=== PATIENT | female | born 1990 | race Caucasian/White ===

== ENCOUNTER 2016-04-28 10:53 | Emergency (ER) | payer OTHER ==
--- NOTE | 2016-04-28 15:07 | DIAGNOSTIC IMAGING REPORT ---
PROCEDURE: ABDOMEN/PELVIS WITH CONTRAST CLINICAL INDICATION: ABDOMINAL PAIN TECHNIQUE: 125 ml of Isovue 300 were injected intravenously and axial images were obtained of the abdomen and pelvis with sagittal and coronal reformations. COMPARISON: None. FINDINGS: ABDOMEN: Clear lung bases. Normal sized heart. No hiatal hernia. Tiny hepatic cyst. The liver, gallbladder, adrenal glands, kidneys, pancreas and spleen are otherwise normal. The abdominal aorta is normal in its course and caliber. There are no suspicious calcifications, retroperitoneal adenopathy or masses. The stomach, upper bowel loops, and mesentery are normal. Intact anterior abdominal wall. No free fluid or inflammation. PELVIS: The appendix and pelvic small bowel loops are normal. Small amount of liquid stool in the cecum. The rest of the colon is diffusely decompressed/ spasm. The uterus, ovaries, urinary bladder, and pelvic vessels are normal. No adenopathy, free fluid, or pelvic mass. Intact osseous structures. IMPRESSION: 1. No acute process. 2. Decompressed colon versus colonic spasm. 3. Findings discussed with Dr. Groves in the emergency room. All CT scans at this facility use dose modulation, iterative reconstruction, and/or weight-based dosing when appropriate to reduce radiation dose to as low as reasonably achievable.
--- NOTE | 2016-04-28 16:11 | ED NURSING NOTES ---
Clinical Report - [facility] [address] [place] [address] 04/28/2016 10:56 Patient: MEHDI BEJARANO TRIAGE Triage time 1048. Acuity: LEVEL 3. Chief Complaint: ABDOMINAL PAIN, NAUSEA, VOMITING and DIARRHEA. --10:59 Lillian Valadez R.N. 10:52 04/28/16. BP: 117/71. HR: 74. RR: 18. O2 saturation: 99%. Temp: 97.7 F. Pain level now: 12/27. --10:59 Lillian Valadez R.N. Weight: 61 kg stated. Height/Length: 66 inches Per Patient. BMI: 21.7. --23:06 Lillian Valadez R.N. Medications CeleXA Oral. ClonazePAM Oral. Gabapentin Oral. Prazosin HCl Oral. Vistaril Oral. --23:07 Lillian Valadez R.N. Allergies Cipro. --10:52 Lillian Valadez R.N. History Arrived by private vehicle. Historian: father. Accompanied by family. Onset. (0600). She has had nausea, vomiting, diarrhea and abdominal pain. PAST MEDICAL HX: ( anxiety). SURGERY HX: No history of previous surgery. SOCIAL HX: Light tobacco smoker (cigarette)- less than 1/2 a pack per day. Occasional alcohol use. History of drug use: marijuana. --10:59 Lillian Valadez R.N. ADDITIONAL SURGERIES: no known surgeries. Interventions ID band on patient. To treatment room. --10:59 Lillian Valadez R.N. PHYSICAL ASSESSMENT 10:48. To room via wheelchair. Patient gowned. GENERAL / NEURO / PSYCH: Alert. Oriented X 4. Appears in distress. RESPIRATORY: Respirations not labored. CVS: Capillary refill less than 2 seconds. GI / : The patient has had nausea and diarrhea. Emesis noted. (hem + emesis). Abdominal tenderness. SKIN: Skin is warm and dry. --10:58 Lillian Valadez R.N. NURSING PROGRESS NOTES 10:48. Patient gowned. Head of bed elevated. Reassurance given. Patient identifiers checked. Call light placed in reach. Side rails up. Bed placed in lowest position. Patient ready for evaluation- chart flagged. --10:54 Lillian Valadez R.N. 11:10. ( Pt continues to wretch and have small amounts of brown/maroon tinged emesis. Pt also up approx every 5 min to go to BR for diarrhea.). --11:39 Lillian Valadez R.N. 11:05 04/28/2016 Site #1 started via IV in the right antecubital space with an 20g angiocath, with aseptic technique and good blood return; one attempt. Blood drawn: rainbow set. Labeled in the presence of the patient and sent to the lab. Saline lock flushed with 10 mL saline. --11:40 Lillian Valadez R.N. 11:20. ( zofran given, pt still having emesis, still c/ o stomach pain, ERMD notified). --11:41 Lillian Valadez R.N. 11:05 04/28/2016 Started bag #1 1000 mL IV Fluids IV NS (Saline); at 1000 mL/hr over 1 hour(s) via site #1 via IV pump. IV patency established. IV site checked: no pain, redness, or swelling. IV flushed thoroughly pre- and post-medication administration. --11:41 Lillian Valadez R.N. 11:07 04/28/2016 Zofran (Ondansetron HCl) IVP 4 mg given over 1 minute(s) via site #1. IV patency established. IV site checked: no pain, redness, or swelling. IV flushed thoroughly pre- and post-medication administration. IVP given by RN. --11:42 Lillian Valadez R.N. 11:20 04/28/2016 Reglan (Metoclopramide HCl) IVP 10 mg given over 2 minute(s) via site #1. IV patency established. IV site checked: no pain, redness, or swelling. IV flushed thoroughly pre- and post-medication administration. IVP given by RN. --11:43 Lillian Valadez R.N. 11:30 04/28/2016 Demerol (Meperidine HCl) IVP 50 mg given over 1 minute(s) via site #1. IV patency established. IV site checked: no pain, redness, or swelling. IV flushed thoroughly pre- and post-medication administration. IVP given by RN. --11:43 Lillian Valadez R.N. 11:30. ( Pt crying out, "my stomach hurts....help me" additional meds given. Pt had been up to bathroom again for diarrhea prior to this, BSC placed in room, to obtain stool sample.). --11:45 Lillian Valadez R.N. 11:40 Pt quiet, with eyes closed, states pain now 6/10. mother at bedside. --11:47 Lillian Valadez R.N. 11:51 04/28/16. BP: 101/61 (regular adult cuff) taken on the left arm, via an automated monitor, while sitting. ED physician and RN notified. HR: 73 (regular, normal rate and strong). RN notified. RR: 18 (regular, unlabored and normal). O2 saturation: 96% on room air. RN notified. Temp: 98.1 F (oral). RN notified. --11:52 Luis Villalobos 12:30 04/28/16. BP: 104/64. HR: 70. RR: 16. O2 saturation: 100%. Temp: deferred. Pain level now: 2/10. Additional comments: resting quietly, mother at bedside. Pt up to BSC to give UA. --12:45 Lillian Valadez R.N. 12:30. Patient ID band checked for patient name and birthdate: patient confirmed. Clean catch urine collected with return of orange-colored urine; sample sent to lab for urinalysis, culture and HCG. Specimen labeled in the presence of the patient. --12:45 Lillian Valadez R.N. 2630. Patient transported to [place] by stretcher with tech. --14:07 Lillian Valadez R.N. 13:30 04/28/16. BP: 98/61. HR: 82. RR: 16. O2 saturation: 98%. Temp: 98.2 F. Pain level now: 04/29. Additional comments: does c/o headache . --14:07 Lillian Valadez R.N. 12:20 04/28/2016 IV Fluids IV NS Discontinued: bag #1 infused. Total amount infused: 1000 mL. IV patency established. IV site checked: no pain, redness, or swelling. IV flushed thoroughly. --14:10 Lillian Valadez R.N. 12:25 04/28/2016 1000cc NS( bag #2) IV at site #1 * IV Fluids 1000cc/hr --14:12 Lillian Valadez R.N. 13:25 04/28/2016 1000cc NS( bag #2) IV at site #1 IV Fluids Discontinued: bag #2 infused. Total amount infused: 1000 mL. IV patency established. IV site checked: no pain, redness, or swelling. IV flushed thoroughly. (site converted to saline lock). --14:13 Lillian Valadez R.N. 14:15 04/28/16. Patient returned from radiology by stretcher with tech. --14:15 Lillian Valadez R.N. 14:22. ( Pt vomited 250cc clear liquid with brownish flecks. NIP meds given, ERMD notified). --14:26 Lillian Valadez R.N. 14:22 04/28/2016 Zofran (Ondansetron HCl) IVP 4 mg given over 1 minute(s) via site #1. IV patency established. IV site checked: no pain, redness, or swelling. IV flushed thoroughly pre- and post-medication administration. IVP given by RN. --14:27 Lillian Valadez R.N. 14:35 04/28/16. ( Pt states nausea better, but ambulating to bathroom to have diarrhea). --14:35 Lillian Valadez R.N. 14:50. ( now states vomiting worse, vomited additional 200 cc clear fluid, ERMD notified, additional meds given, mouth care done w swabs). --15:09 Lillian Valadez R.N. 15:00 04/28/2016 PROMETHAZINE IVP 25 mg given over 1 minute(s) via site #1. IV patency established. IV site checked: no pain, redness, or swelling. IV flushed thoroughly pre- and post-medication administration. IVP given by RN. --15:10 Lillian Valadez R.N. 15:30 pt doing well, no additional vomiting. ERMD notoifed. --16:38 Lillian Valadez R.N. 16:20 04/28/2016 1000cc NS IV bag #3 * IV Fluids 250/hr --23:03 Lillian Valadez R.N. 16:25 04/28/2016 Started 20 mg of Famotidine IVPB in bag #1 50 mL; at 150 mL/hr over 20 minute(s) via site #1 via IV pump. IV patency established. IV site checked: no pain, redness, or swelling. IV flushed thoroughly pre- and post-medication administration. --16:40 Lillian Valadez R.N. 1635 pt continues to vomit, 250cc out-- additional meds given. --16:41 Lillian Valadez R.N. 16:49 04/28/16. BP: 117/78. HR: 83. RR: 18. O2 saturation: 100%. Temp: 98.2 F. Pain level now 5/10. --16:50 Lillian Valadez R.N. 16:45 04/28/2016 Ativan (LORazepam) IVP 0.5 mg given over 1 minute(s) via site #1. IV patency established. IV site checked: no pain, redness, or swelling. IV flushed thoroughly pre- and post-medication administration. IVP given by RN. --16:51 Lillian Valadez R.N. 17:35 04/28/16. BP: 103/61 (regular adult cuff) taken on the left arm, via an automated monitor, while lying. ED physician and RN notified. HR: 86 (regular, normal rate and strong). RR: 20 (regular, unlabored and normal). O2 saturation: 96% on room air. ED physician and RN notified. Temp: 98.1 F (oral). --17:37 Luis Villalobos 17:53 04/28/2016 Famotidine IVPB Discontinued: bag #1 infused. Total amount infused: 50 mL. --17:53 Le Rea R.N. Patient waiting for evaluation, CT results and disposition. --18:03 Le Rea R.N. 18:30 04/28/16. BP: 115/71. HR: 81. RR: 18. O2 saturation: 99%. Temp: 98.4 F. Pain level now: 04/29. Additional comments: pt sleeping, hasn't vomted since ativan given. sleeping at present . --18:46 Lillian Valadez R.N. <<STRICKEN ENTRY-- ( RT here assessing pt.). --19:02 Le Rea R.N. --END STRIKE>> Charted On Wrong Patient --19:03 Le Rea R.N. 18:50 04/28/2016 Site #1 removed upon discharge. Bandaid applied. --23:05 Lillian Valadez R.N. 18:50 04/28/2016 1000cc NS IV bag #3 IV Fluids Discontinued: bag #3 STOPPED upon discharge. Total amount infused: 650 mL. IV patency established. IV site checked: no pain, redness, or swelling. IV flushed thoroughly. --23:04 Lillian Valadez R.N. DISPOSITION / DISCHARGE 19:00. Condition at departure: improved and stable. No learning barriers present. Discharge instructions provided and reviewed with the patient and parent. Reviewed medication(s) (zofran, protonix, dicyclomine). Patient and parent verbalized understanding. Written instructions provided in [place]. The patient was discharged home and accompanied by parent. She left the Emergency Department in a wheelchair and via private vehicle. Parent driving. --22:59 Lillian Valadez R.N. 19:00 04/28/16. BP: 115/71. HR: 84. RR: 16. O2 saturation: 98%. Temp: 98.4 F. Pain level now: 04/29. --22:59 Lillian Valadez R.N. Locked/Released at 04/28/2016 23:08 by Lillian Valadez R.N.
--- NOTE | 2016-04-28 16:11 | ED ORDER SUMMARY ---
..... Patient: MEHDI BEJARANO OrderSheet [facility] VisitID: [id number] [place] [address] 25y, F Registration Date/Time: 04/28/2016 ORDER SHEET Weight: 61 kg (stated) Allergies: Cipro GENERAL ORDERS: CBC w Diff Urgent (11:04/28/2016 Varsha Vital) (Ack 11:32 TBergley) (11:33 TBergley) CMP Urgent (:04/28/2016 Varsha Vital) (Ack 11:32 TBergley) (11:33 TBergley) UA-Culture if indicated Urgent (:04/28/2016 Varsha Vital) (Ack 11:32 TBergley) (12:46 DDean R.N.) PT with INR Urgent (11:04/28/2016 Varsha Vital) (Ack 11:32 TBergley) (11:33 TBergley) PTT Urgent (11:04/28/2016 Varsha Vital) (Ack 11:32 TBergley) (11:33 TBergley) Amylase Urgent (11:04/28/2016 Varsha Vital) (Ack 11:32 TBergley) (11:33 TBergley) Lipase Urgent (11:04/28/2016 Varsha Vital) (Ack 11:32 TBergley) (11:33 TBergley) Urine Urgent (11:04/28/2016 Varsha Vital) (Ack 11:32 TBergley) (12:46 DDean R.N.) CT Abd/Pel w Cont (No) (15/0.8) Urgent (13:43 04/28/2016 Varsha Vital) (Ack 14:02 LTapper) (14:15 DDean R.N.) MEDICATION ORDERS: - (may have IV bag #2 at 1000cc hr. then convert to saline lock) (14:08 04/28/2016 DDean R.N. verbal order read back to Varsha Vital) (14:12 DDean R.N.) Promethazine IV 25 mg (HIGH ALERT MEDICATION, NOW) (15:01 04/28/2016 Varsha Viatl) (15:10 DDean R.N.) - (may have IV bag #3 at 250/hr) (23:01 04/28/2016 DDean R.N. verbal order read back to Varsha Vital) (23:03 DDean R.N.) IV FLUIDS: IV NS : initial bolus none -, then 1000 mL/hr for X1 (NOW) (11:28 04/28/2016 Varsha Vital) (Ack 11:30 DDean R.N.) (11:41 DDean R.N.) Reglan IV 10 mg (NOW) (11:29 04/28/2016 Varsha Vital) (Ack 11:31 DDean R.N.) (11:43 DDean R.N.) Zofran IV 4 mg (NOW) (11:29 04/28/2016 Varsha Vital) (Ack 11:31 DDean R.N.) (11:42 DDean R.N.) Demerol IV 50 mg (HIGH ALERT MEDICATION, NOW) (11:30 04/28/2016 Varsha Vital) (Ack 11:31 DDean R.N.) (11:43 DDean R.N.) Zofran IV 4 mg (NOW) (14:27 04/28/2016 DDean R.N. per protocol) (14:27 DDean R.N.) Famotidine IV 20 mg/50mL (NOW) (16:25 04/28/2016 Varsha Vital) (16:40 DDean R.N.) Ativan IV 0.5 mg (HIGH ALERT MEDICATION, NOW) (16:42 04/28/2016 DDean R.N. verbal order read back to Varsha Vital) (16:51 DDean R.N.) ORDER SHEET NOTES: [Electronically signed by Henry Groves Dr. (22:29 04/28/2016)] [Electronically signed by Lillian Valadez R.N. (23:08 04/28/2016)] [Electronically locked/signed by Lillian Valadez R.N. (23:08 04/28/2016)]
--- NOTE | 2016-04-28 16:11 | ED CLINICAL REPORT ---
Clinical Report - Physicians/Mid Levels [facility] [address] [place] [address] 04/28/2016 10:56 Patient: MEHDI BEJARANO Time Seen: 11:17; initial patient contact. Arrived- By private vehicle. Historian- patient. HISTORY OF PRESENT ILLNESS Chief Complaint: VOMITING and DIARRHEA. This started today and is still present and worsening. The patient has had nausea, vomiting, diarrhea and abdominal pain. No black stools or bloody stools. The illness is described as moderate. Similar symptoms previously: None. Recent medical care: Not recently seen/assessed. REVIEW OF SYSTEMS No fever, difficulty with urination or dark urine. All systems otherwise negative, except as recorded above. PAST HISTORY Anxiety. Surgeries: No history of previous surgery. SOCIAL HISTORY Current every day smoker. Occasional alcohol use. History of drug use: marijuana. ADDITIONAL NOTES The nursing notes have been reviewed with agreement regarding the chief complaint, PMH and patient medications and allergies. PHYSICAL EXAM Vital Signs: 04/28/2016 10:52 BP: 117/71. HR: 74. RR: 18. O2 saturation: 99%. Temp: 97.7 F. Pain level now: 10/10. Have been reviewed as normal. Appearance: Alert. Oriented X3. Patient in mild distress. Eyes: Eyes normal inspection. ENT: Dry mucous membranes present. CVS: Normal heart rate and rhythm. Heart sounds normal. Respiratory: No respiratory distress. Breath sounds normal. Abdomen: Soft. Moderate tenderness diffusely. No guarding, rebound tenderness or Gomez's, obturator or psoas sign present. Bowel sounds normal. No organomegaly. No mass. Back: Normal inspection. No CVA tenderness. Skin: Skin warm and dry. Normal skin color. No rash. Neuro: Oriented X 3. LABS, X-RAYS, AND EKG Abdominal CT: 1. No acute process. 2. Decompressed colon versus colonic spasm. Study type: abdomen and pelvis. Abdominal CT performed with IV contrast. Prior studies were not available for comparison. The study was interpreted by the radiologist and discussed with the radiologist. Laboratory Tests: UA-Culture if indicated: (CARROL: 04/28/2016 12:40) ( [facility] 04/28/2016 12:58) Final results Test Result Flag Units (Reference) URINE COLOR JOSELYN URINE APPEARANCE CLEAR URINE GLUCOSE NEGATIVE (NEGATIVE) URINE BILIRUBIN NEGATIVE (NEGATIVE) This is a corrected result 04/28/16 1257:URINE BILI previously reported as: 1+ URINE BILIRUBIN ICTOTEST NEGATIVE (NEGATIVE) URINE KETONE 2+ (NEGATIVE) URINE SPECIFIC GRAVITY 1.025 (1.010-1.030) URINE PH 6.0 (5.0-8.0) URINE PROTEIN 1+ (NEGATIVE) URINE UROBILINOGEN 0.2 EU/dL (0.2-1.0) URINE NITRITE NEGATIVE (NEGATIVE) URINE BLOOD NEGATIVE (NEGATIVE) URINE LEUK ESTERASE NEGATIVE (NEGATIVE) URINE RBC 1-3 rbc/hpf (0-1) URINE WBC 1-3 wbc/hpf (0-1) URINE EPITHELIAL CELLS 5-10 EPI/hpf (0-5) URINE BACTERIA MODERATE (2+ TO 3+) (NONE SEEN) URINE COMMENT CULTURE INDICATED 3+ MUCOUSURINE CULTURES ARE SET-UP BASED ON THE FOLLOWING CRITERIA:POSITIVE NITRITEPOSITIVE LEUKOCYTE ESTERASEGREATER THAN 10 WHITE BLOOD CELLSMODERATE (2+) OR GREATER BACTERIA Urine: (CARROL: 04/28/2016 12:40) ( [facility] 04/28/2016 12:46) Final results Test Result Flag Units (Reference) URINE NEGATIVE CBC w Diff: (CARROL: 04/28/2016 11:05) ( [facility] 04/28/2016 12:39) Final results Test Result Flag Units (Reference) WHITE BLOOD COUNT 22.0 H K/uL (4.5-11.5) RED BLOOD COUNT 5.07 M/uL (4.00-5.20) HEMOGLOBIN 15.2 gm/dL (12.0-16.0) HEMATOCRIT 45.1 % (36.0-46.0) MEAN CELL VOLUME 89 fL (80-100) MEAN CORPUSCULAR HGB 30 pg (26-34) MEAN CORPUSCULAR HGB CONC 34 g/dL (31-37) RED CELL DISTRIBUTION WIDTH 13.2 % (11.6-14.8) PLATELET COUNT 344 K/uL (150-400) POLY % 71 % (50-75) BAND % 23 H % (0-8) LYMPH 2 L % (25-40) MONO 3 % (3-14) EOSINOPHIL % 1 % (0-4) BASOPHIL % 0 % (0-2) METAMYELOCYTE % 0 % (0-1) MYELOCYTE 0 % (0-1) OTHER CELL TYPE 0 PT with INR: (CARROL: 04/28/2016 11:05) ( [facility] [place] 04/28/2016 11:42) Final results Test Result Flag Units (Reference) INR 1.0 (0.8-1.2) Low Intensity Therapy: INR 1.5-2.0 PT range 18.5-23.1Mod.Intensity Therapy: INR 2.0-3.0 PT range 23.1-31.5High Intensity Therapy: INR 2.5-3.5 PT range 27.4-35.5High Intensity Therapy 2: INR 3.0-4.0 PT range 31.5-39.3 APTT 27 SECONDS (24-34) CMP: (CARROL: 04/28/2016 11:05) ( [facility] 04/28/2016 11:50) Final results Test Result Flag Units (Reference) GLUCOSE 192 H mg/dL (70-110) BUN 15 mg/dL (7-18) CREATININE 0.8 mg/dL (0.6-1.3) Estimated GFR >60 mL/min Estimated GFR- >60 mL/min Note: Persistent reduction over 3 months in eGFR<60 mL/min/1.73 m2 defines CKD. Patients with eGFR values>=60 mL/min/1.73 m2 may also have CKD if evidence ofpersistent proteinuria. Additional information may be foundat www.kidney.org. SODIUM 139 mmol/L (136-145) POTASSIUM 3.7 mmol/L (3.5-5.1) CHLORIDE 102 mmol/L (98-107) CARBON DIOXIDE 26 mmol/L (21-32) CALCIUM 9.4 mg/dL (8.5-10.1) TOTAL PROTEIN 8.5 H g/dL (6.4-8.2) ALBUMIN 4.9 g/dL (3.3-5.0) BILIRUBIN, TOTAL 2.3 H mg/dL (0.0-1.0) ALKALINE PHOSPHATASE 88 U/L (46-116) AST (SGOT) 21 U/L (15-37) ALT (SGPT) 28 U/L (12-78) LIPASE 76 U/L (73-393) AMYLASE 24 L U/L (25-115) . PROGRESS AND PROCEDURES Disposition: Discharged home in good and improved condition. Condition: good. CLINICAL IMPRESSION Acute viral gastroenteritis. INSTRUCTIONS Prescription Medications: Zofran (orally disintegrating tablets) 4 mg: take 1 orally every 6 hours as needed for nausea and vomiting. Dispense ten (10). No refill. Substitution is permissible. Dicyclomine 20 mg capsules: take 1 orally every 6 hours as needed for abdominal cramps or abdominal discomfort. Dispense thirty (30). No refill Protonix 40 mg tablets: take 1 tablet orally every day. Dispense twenty-eight (28). No refill. Substitution is permissible. Follow-up: Follow up with your doctor in about four days if not better. Call for an appointment. Screening today revealed the patient's blood pressure to be in the normal range. (Electronically signed by Henry Groves Dr. 04/28/2016 22:29)
--- NOTE | 2016-04-28 16:11 | ED CLINICAL REPORT ---
Clinical Report - Physicians/Mid Levels [facility] [address] [place] [address] 04/28/2016 10:56 Patient: MEHDI BEJARANO Time Seen: 11:17; initial patient contact. Arrived- By private vehicle. Historian- patient. HISTORY OF PRESENT ILLNESS Chief Complaint: VOMITING and DIARRHEA. This started today and is still present and worsening. The patient has had nausea, vomiting, diarrhea and abdominal pain. No black stools or bloody stools. The illness is described as moderate. Similar symptoms previously: None. Recent medical care: Not recently seen/assessed. REVIEW OF SYSTEMS No fever, difficulty with urination or dark urine. All systems otherwise negative, except as recorded above. PAST HISTORY Anxiety. Surgeries: No history of previous surgery. SOCIAL HISTORY Current every day smoker. Occasional alcohol use. History of drug use: marijuana. ADDITIONAL NOTES The nursing notes have been reviewed with agreement regarding the chief complaint, PMH and patient medications and allergies. PHYSICAL EXAM Vital Signs: 04/28/2016 10:52 BP: 117/71. HR: 74. RR: 18. O2 saturation: 99%. Temp: 97.7 F. Pain level now: 10/10. Have been reviewed as normal. Appearance: Alert. Oriented X3. Patient in mild distress. Eyes: Eyes normal inspection. ENT: Dry mucous membranes present. CVS: Normal heart rate and rhythm. Heart sounds normal. Respiratory: No respiratory distress. Breath sounds normal. Abdomen: Soft. Moderate tenderness diffusely. No guarding, rebound tenderness or Gomez's, obturator or psoas sign present. Bowel sounds normal. No organomegaly. No mass. Back: Normal inspection. No CVA tenderness. Skin: Skin warm and dry. Normal skin color. No rash. Neuro: Oriented X 3. LABS, X-RAYS, AND EKG Abdominal CT: 1. No acute process. 2. Decompressed colon versus colonic spasm. Study type: abdomen and pelvis. Abdominal CT performed with IV contrast. Prior studies were not available for comparison. The study was interpreted by the radiologist and discussed with the radiologist. Laboratory Tests: UA-Culture if indicated: (CARROL: 04/28/2016 12:40) ( [facility] 04/28/2016 12:58) Final results Test Result Flag Units (Reference) URINE COLOR JOSELYN URINE APPEARANCE CLEAR URINE GLUCOSE NEGATIVE (NEGATIVE) URINE BILIRUBIN NEGATIVE (NEGATIVE) This is a corrected result 04/28/16 1257:URINE BILI previously reported as: 1+ URINE BILIRUBIN ICTOTEST NEGATIVE (NEGATIVE) URINE KETONE 2+ (NEGATIVE) URINE SPECIFIC GRAVITY 1.025 (1.010-1.030) URINE PH 6.0 (5.0-8.0) URINE PROTEIN 1+ (NEGATIVE) URINE UROBILINOGEN 0.2 EU/dL (0.2-1.0) URINE NITRITE NEGATIVE (NEGATIVE) URINE BLOOD NEGATIVE (NEGATIVE) URINE LEUK ESTERASE NEGATIVE (NEGATIVE) URINE RBC 1-3 rbc/hpf (0-1) URINE WBC 1-3 wbc/hpf (0-1) URINE EPITHELIAL CELLS 5-10 EPI/hpf (0-5) URINE BACTERIA MODERATE (2+ TO 3+) (NONE SEEN) URINE COMMENT CULTURE INDICATED 3+ MUCOUSURINE CULTURES ARE SET-UP BASED ON THE FOLLOWING CRITERIA:POSITIVE NITRITEPOSITIVE LEUKOCYTE ESTERASEGREATER THAN 10 WHITE BLOOD CELLSMODERATE (2+) OR GREATER BACTERIA Urine: (CARROL: 04/28/2016 12:40) ( [facility] 04/28/2016 12:46) Final results Test Result Flag Units (Reference) URINE NEGATIVE CBC w Diff: (CARROL: 04/28/2016 11:05) ( [facility] [place] 04/28/2016 12:39) Final results Test Result Flag Units (Reference) WHITE BLOOD COUNT 22.0 H K/uL (4.5-11.5) RED BLOOD COUNT 5.07 M/uL (4.00-5.20) HEMOGLOBIN 15.2 gm/dL (12.0-16.0) HEMATOCRIT 45.1 % (36.0-46.0) MEAN CELL VOLUME 89 fL (80-100) MEAN CORPUSCULAR HGB 30 pg (26-34) MEAN CORPUSCULAR HGB CONC 34 g/dL (31-37) RED CELL DISTRIBUTION WIDTH 13.2 % (11.6-14.8) PLATELET COUNT 344 K/uL (150-400) POLY % 71 % (50-75) BAND % 23 H % (0-8) LYMPH 2 L % (25-40) MONO 3 % (3-14) EOSINOPHIL % 1 % (0-4) BASOPHIL % 0 % (0-2) METAMYELOCYTE % 0 % (0-1) MYELOCYTE 0 % (0-1) OTHER CELL TYPE 0 PT with INR: (CARROL: 04/28/2016 11:05) ( [facility] 04/28/2016 11:42) Final results Test Result Flag Units (Reference) INR 1.0 (0.8-1.2) Low Intensity Therapy: INR 1.5-2.0 PT range 18.5-23.1Mod.Intensity Therapy: INR 2.0-3.0 PT range 23.1-31.5High Intensity Therapy: INR 2.5-3.5 PT range 27.4-35.5High Intensity Therapy 2: INR 3.0-4.0 PT range 31.5-39.3 APTT 27 SECONDS (24-34) CMP: (CARROL: 04/28/2016 11:05) ( [facility] 04/28/2016 11:50) Final results Test Result Flag Units (Reference) GLUCOSE 192 H mg/dL (70-110) BUN 15 mg/dL (7-18) CREATININE 0.8 mg/dL (0.6-1.3) Estimated GFR >60 mL/min Estimated GFR- >60 mL/min Note: Persistent reduction over 3 months in eGFR<60 mL/min/1.73 m2 defines CKD. Patients with eGFR values>=60 mL/min/1.73 m2 may also have CKD if evidence ofpersistent proteinuria. Additional information may be foundat www.kidney.org. SODIUM 139 mmol/L (136-145) POTASSIUM 3.7 mmol/L (3.5-5.1) CHLORIDE 102 mmol/L (98-107) CARBON DIOXIDE 26 mmol/L (21-32) CALCIUM 9.4 mg/dL (8.5-10.1) TOTAL PROTEIN 8.5 H g/dL (6.4-8.2) ALBUMIN 4.9 g/dL (3.3-5.0) BILIRUBIN, TOTAL 2.3 H mg/dL (0.0-1.0) ALKALINE PHOSPHATASE 88 U/L (46-116) AST (SGOT) 21 U/L (15-37) ALT (SGPT) 28 U/L (12-78) LIPASE 76 U/L (73-393) AMYLASE 24 L U/L (25-115) . PROGRESS AND PROCEDURES Disposition: Discharged home in good and improved condition. Condition: good. CLINICAL IMPRESSION Acute viral gastroenteritis. INSTRUCTIONS Prescription Medications: Zofran (orally disintegrating tablets) 4 mg: take 1 orally every 6 hours as needed for nausea and vomiting. Dispense ten (10). No refill. Substitution is permissible. Dicyclomine 20 mg capsules: take 1 orally every 6 hours as needed for abdominal cramps or abdominal discomfort. Dispense thirty (30). No refill Protonix 40 mg tablets: take 1 tablet orally every day. Dispense twenty-eight (28). No refill. Substitution is permissible. Follow-up: Follow up with your doctor in about four days if not better. Call for an appointment. Screening today revealed the patient's blood pressure to be in the normal range. (Electronically signed by Henry Groves Dr. 04/28/2016 22:29)
--- NOTE | 2016-04-28 16:11 | ED ORDER SUMMARY ---
..... Patient: MEHDI BEJARANO OrderSheet [facility] VisitID: [id number] [place] [address] 25y, F Registration Date/Time: 04/28/2016 ORDER SHEET Weight: 61 kg (stated) Allergies: Cipro GENERAL ORDERS: CBC w Diff Urgent (11:04/28/2016 Varsha Vital) (Ack 11:32 TBergley) (11:33 TBergley) CMP Urgent (:04/28/2016 Varsha Vital) (Ack 11:32 TBergley) (11:33 TBergley) UA-Culture if indicated Urgent (:04/28/2016 Varsha Vital) (Ack 11:32 TBergley) (12:46 DDean R.N.) PT with INR Urgent (11:04/28/2016 Varsha Vital) (Ack 11:32 TBergley) (11:33 TBergley) PTT Urgent (11:04/28/2016 Vrasha Vital) (Ack 11:32 TBergley) (11:33 TBergley) Amylase Urgent (11:04/28/2016 Varsha Vital) (Ack 11:32 TBergley) (11:33 TBergley) Lipase Urgent (11:04/28/2016 Varsha Vital) (Ack 11:32 TBergley) (11:33 TBergley) Urine Urgent (11:04/28/2016 Varsha Vital) (Ack 11:32 TBergley) (12:46 DDean R.N.) CT Abd/Pel w Cont (No) (15/0.8) Urgent (13:43 04/28/2016 Varsha Vital) (Ack 14:02 LTapper) (14:15 DDean R.N.) MEDICATION ORDERS: - (may have IV bag #2 at 1000cc hr. then convert to saline lock) (14:08 04/28/2016 DDean R.N. verbal order read back to Varsha Vital) (14:12 DDean R.N.) Promethazine IV 25 mg (HIGH ALERT MEDICATION, NOW) (15:01 04/28/2016 Varsha Vital) (15:10 DDean R.N.) - (may have IV bag #3 at 250/hr) (23:01 04/28/2016 DDean R.N. verbal order read back to Varsha Vital) (23:03 DDean R.N.) IV FLUIDS: IV NS : initial bolus none -, then 1000 mL/hr for X1 (NOW) (11:28 04/28/2016 Varsha Vital) (Ack 11:30 DDean R.N.) (11:41 DDean R.N.) Reglan IV 10 mg (NOW) (11:29 04/28/2016 Varsha Vital) (Ack 11:31 DDean R.N.) (11:43 DDean R.N.) Zofran IV 4 mg (NOW) (11:29 04/28/2016 Varsha Vital) (Ack 11:31 DDean R.N.) (11:42 DDean R.N.) Demerol IV 50 mg (HIGH ALERT MEDICATION, NOW) (11:30 04/28/2016 Varsha Vital) (Ack 11:31 DDean R.N.) (11:43 DDean R.N.) Zofran IV 4 mg (NOW) (14:27 04/28/2016 DDean R.N. per protocol) (14:27 DDean R.N.) Famotidine IV 20 mg/50mL (NOW) (16:25 04/28/2016 Varsha Vital) (16:40 DDean R.N.) Ativan IV 0.5 mg (HIGH ALERT MEDICATION, NOW) (16:42 04/28/2016 DDean R.N. verbal order read back to Varsha Vital) (16:51 DDean R.N.) ORDER SHEET NOTES: [Electronically signed by Henry Groves Dr. (22:29 04/28/2016)] [Electronically signed by Lillian Valadez R.N. (23:08 04/28/2016)] [Electronically locked/signed by Lillian Valadze R.N. (23:08 04/28/2016)]
--- NOTE | 2016-04-28 23:08 | ED MED RECONCILIATION SUMMARY ---
Patient: MEHDI BEJARANO Medication Reconciliation Report [facility] VisitID: [id number] [place] [address] 25y, F Registration Date/Time: 04/28/2016 Weight: 61 kg Height/Length: 66 in. BMI: 21.7 ALLERGIES: Cipro The patient's Home Medications are listed below: THE FOLLOWING MEDICATIONS NEED TO BE RECONCILED: CeleXA Oral ClonazePAM Oral Gabapentin Oral Prazosin HCl Oral Vistaril Oral The source(s) of the original Home Medication information: Not obtained. The following Medications were given to the patient in the Emergency Department: IV NS IV Fluids bolus 0, then 1000 mL/hr, administered: 04/28/2016 11:05:00 AM Zofran [IVP] IVP 4 mg, administered: 04/28/2016 11:07:00 AM Reglan [IVP] IVP 10 mg, administered: 04/28/2016 11:20:00 AM Demerol [IVP] IVP 50 mg, administered: 04/28/2016 11:30:00 AM 1000cc NS( bag #2) IV at site #1 IV Fluids bolus 0, then 1000cc/hr, administered: 04/28/2016 12:25:00 PM Zofran [IVP] IVP 4 mg, administered: 04/28/2016 2:22:00 PM PROMETHAZINE [IVP] IVP 25 mg, administered: 04/28/2016 3:00:00 PM Famotidine [IVPB] IVPB bolus 0, then 20 mg 150 mL/hr, administered: 04/28/2016 4:25:00 PM Ativan [IVP] IVP 0.5 mg, administered: 04/28/2016 4:45:00 PM 1000cc NS IV bag #3 IV Fluids bolus 0, then 250/hr, administered: 04/28/2016 4:20:00 PM The following Medications were prescribed to the patient: Zofran (orally disintegrating tablets) 4 mg: take 1 orally every 6 hours as needed for nausea and vomiting. Dispense ten (10). No refill. Substitution is permissible. -- Henry Groves Dr. Dicyclomine 20 mg capsules: take 1 orally every 6 hours as needed for abdominal cramps or abdominal discomfort. Dispense thirty (30). No refill -- Henry Groves Dr. Protonix 40 mg tablets: take 1 tablet orally every day. Dispense twenty-eight (28). No refill. Substitution is permissible. -- Henry Groves Dr.
--- NOTE | 2016-04-28 23:08 | ED DISCHARGE INSTRUCTIONS ---
Patient: MEHDI BEJARANO General Instructions [facility] VisitID: [id number] [place] [address] 25y, F Registration Date/Time: 04/28/2016 Acute viral gastroenteritis. INSTRUCTIONS Prescription Medications: Zofran (orally disintegrating tablets) 4 mg: take 1 orally every 6 hours as needed for nausea and vomiting. Dispense ten (10). No refill. Substitution is permissible. Dicyclomine 20 mg capsules: take 1 orally every 6 hours as needed for abdominal cramps or abdominal discomfort. Dispense thirty (30). No refill Protonix 40 mg tablets: take 1 tablet orally every day. Dispense twenty-eight (28). No refill. Substitution is permissible. Follow-up: Follow up with your doctor in about four days if not better. Call for an appointment. Screening today revealed the patient's blood pressure to be in the normal range. ADDITIONAL INFORMATION Viral Gastroenteritis (6Yr-Adult) Gastroenteritis is another name for thestomach flu.It is most often caused by a virus that affects the stomach and intestinal tract. Symptoms include stomach cramping and fever, vomiting and/or diarrhea, and can last from 2 to 7 days. The danger from repeated vomiting or diarrhea is dehydration. This is the loss of too much water and minerals from the body. When this occurs, body fluids must be replaced. Antibiotics are not effective for this illness, but simple home treatment will be helpful. Home Care If symptoms are severe, rest at home for the next 24 hours. Avoid tobacco, caffeine, and alcohol use, which can worsen symptoms. Acetaminophen (Tylenol) or ibuprofen (Motrin, Advil) may be usedfor fever or pain unless another medication was prescribed. NOTE: If you have chronic liver or kidney disease or ever had a stomach ulcer or GI bleeding, talk with your doctor before using these medicines. Aspirin should never be used in anyone under 18 years of age who is ill with a fever. It may cause severe liver damage. If medicines for diarrhea or vomiting were prescribed, be sure they are takenonly as directed. If vomiting, drink small amounts of clear fluids (such as water, sports drinks, clear sodas) at frequent intervals to prevent dehydration. Start with 1 to 2 tablespoons every 10 minutes. Once vomiting stops, follow these guidelines: During The First 12 To 24 Hours follow the diet below: Beverages: Sport drinks like Gatorade, soft drinks without caffeine; lex viktoria, mineral water (plain or flavored), decaffeinated tea and coffee. Soups: Clear broth, consomm and bouillon Desserts: Plain gelatin (Jell-O), Popsicles and fruit juice bars. During The Next 24 Hours you may add the following to the above: Hot cereal, plain toast, bread, rolls, crackers Plain noodles, rice, mashed potatoes, chicken noodle or rice soup Unsweetened canned fruit (avoid pineapple), bananas Limit fat intake to less than 15 grams per day by avoiding margarine, butter, oils, mayonnaise, sauces, gravies, fried foods, peanut butter, meat, poultry, and fish. Limit fiber; avoid raw or cooked vegetables, fresh fruits (except bananas), and bran cereals. Limit caffeine and chocolate. Do not use spices or seasonings except salt. During The Next 24 Hours The patient can gradually resume a normal diet as symptoms lessen. Preventing Spread Hand washing with soap and water is the best way to prevent the spread of viruses. Caregivers should wash their hands before andafter touching the sick person. The sick person, as well as everyone in the family,should wash their hands after using the toilet and before meals. Clean the toilet after each use. People with diarrhea should not prepare food for others. If you are preparing your own foods, wash your hands before and after. Follow Up with your doctor as advised. Call your doctor if you are not improving over the next 2 to 3 days. If a stool (diarrhea) sample was taken, you may call in 2 days (or as directed) for the results. Get Prompt Medical Attention if any of the following occur: Increasing abdominal pain Continued vomiting (unable to keep liquids down) Frequent diarrhea (more than 5 times a day) Blood in vomit or stool (black or red color) Dark urine, reduced urine output, or extreme thirst Weakness, dizziness, fainting Drowsiness, confusion, stiff neck, or seizure Fever of 100.4F (38C) oral or higher, not better with fever medication New rash Ondansetron Oral disintegrating tablet What is this medicine? ONDANSETRON (on NAILA se lawrence) is used to treat nausea and vomiting caused by chemotherapy. It is also used to prevent or treat nausea and vomiting after surgery. How should I use this medicine? These tablets are made to dissolve in the mouth. Do not try to push the tablet through the foil backing. With dry hands, peel away the foil backing and gently remove the tablet. Place the tablet in the mouth and allow it to dissolve, then swallow. While you may take these tablets with water, it is not necessary to do so. Talk to your venetian blind worker regarding the use of this medicine in children. Special care may be needed. What side effects may I notice from receiving this medicine? Side effects that you should report to your doctor or health career placement specialist as soon as possible: allergic reactions like skin rash, itching or hives, swelling of the face, lips, or tongue breathing problems dizziness fast or irregular heartbeat feeling faint or lightheaded, falls fever and chills swelling of the hands and feet tightness in the chest Side effects that usually do not require medical attention (report to your doctor or health career placement specialist if they continue or are bothersome): constipation or diarrhea headache What may interact with this medicine? Do not take this medicine with any of the following medications: -apomorphine -cisapride -dofetilide -dronedarone -pimozide -thioridazine -ziprasidone This medicine may also interact with the following medications: -carbamazepine -phenytoin -rifampicin -tramadol -other medicines that prolong the QT interval (cause an abnormal heart rhythm) What if I miss a dose? If you miss a dose, take it as soon as you can. If it is almost time for your next dose, take only that dose. Do not take double or extra doses. Where should I keep my medicine? Keep out of the reach of children. Store between 2 and 30 degrees C (36 and 86 degrees F). Throw away any unused medicine after the expiration date. What should I tell my health care provider before I take this medicine? They need to know if you have any of these conditions: heart disease history of irregular heartbeat liver disease low levels of magnesium or potassium in the blood an unusual or allergic reaction to ondansetron, granisetron, other medicines, foods, dyes, or preservatives or trying to get breast-feeding What should I watch for while using this medicine? Check with your doctor or health career placement specialist as soon as you can if you have any sign of an allergic reaction. Dicyclomine Hydrochloride Oral tablet What is this medicine? DICYCLOMINE (dye SYE ann barker) is used to treat bowel problems including irritable bowel syndrome. How should I use this medicine? Take this medicine by mouth with a glass of water. Follow the directions on the prescription label. It is best to take this medicine on an empty stomach, 30 minutes to 1 hour before meals. Take your medicine at regular intervals. Do not take your medicine more often than directed. Talk to your venetian blind worker regarding the use of this medicine in children. Special care may be needed. While this drug may be prescribed for children as young as 6 months of age for selected conditions, precautions do apply. Patients over 65 years old may have a stronger reaction and need a smaller dose. What side effects may I notice from receiving this medicine? Side effects that you should report to your doctor or health career placement specialist as soon as possible: agitation, nervousness, confusion difficulty swallowing dizziness, drowsiness fast or slow heartbeat hallucinations pain or difficulty passing urine Side effects that usually do not require medical attention (report to your doctor or health career placement specialist if they continue or are bothersome): constipation headache nausea or vomiting sexual difficulty What may interact with this medicine? amantadine antacids benztropine digoxin disopyramide medicines for allergies, colds and breathing difficulties medicines for alzheimer's disease medicines for anxiety or sleeping problems medicines for depression or psychotic disturbances medicines for diarrhea medicines for pain metoclopramide tegaserod What if I miss a dose? If you miss a dose, take it as soon as you can. If it is almost time for your next dose, take only that dose. Do not take double or extra doses. Where should I keep my medicine? Keep out of the reach of children. Store at room temperature below 30 degrees C (86 degrees F). Protect from light. Throw away any unused medicine after the expiration date. What should I tell my health care provider before I take this medicine? They need to know if you have any of these conditions: difficulty passing urine esophagus problems or heartburn glaucoma heart disease, or previous heart attack myasthenia gravis prostate trouble stomach infection, or obstruction ulcerative colitis an unusual or allergic reaction to dicyclomine, other medicines, foods, dyes, or preservatives or trying to get breast-feeding What should I watch for while using this medicine? You may get drowsy, dizzy, or have blurred vision. Do not drive, use machinery, or do anything that needs mental alertness until you know how this medicine affects you. To reduce the risk of dizzy or fainting spells, do not sit or stand up quickly, especially if you are an older patient. Alcohol can make you more drowsy, avoid alcoholic drinks. Stay out of bright light and wear sunglasses if this medicine makes your eyes more sensitive to light. Avoid extreme heat (hot tubs, saunas). This medicine can cause you to sweat less than normal. Your body temperature could increase to dangerous levels, which may lead to heat stroke. Antacids can stop this medicine from working. If you get an upset stomach and want to take an antacid, make sure there is an interval of at least 1 to 2 hours before or after you take this medicine. Your mouth may get dry. Chewing sugarless gum or sucking hard candy, and drinking plenty of water may help. Contact your doctor if the problem does not go away or is severe. Pantoprazole Sodium Gastro-resistant tablet What is this medicine? PANTOPRAZOLE (carson TOE pra zole) prevents the production of acid in the stomach. It is used to treat gastroesophageal reflux disease (GERD), inflammation of the esophagus, and Saba-Rios syndrome. How should I use this medicine? Take this medicine by mouth. Swallow the tablets whole with a drink of water. Follow the directions on the prescription label. Do not crush, break, or chew. Take your medicine at regular intervals. Do not take your medicine more often than directed. Talk to your venetian blind worker regarding the use of this medicine in children. While this drug may be prescribed for children as young as 5 years for selected conditions, precautions do apply. What side effects may I notice from receiving this medicine? Side effects that you should report to your doctor or health career placement specialist as soon as possible: allergic reactions like skin rash, itching or hives, swelling of the face, lips, or tongue bone, muscle or joint pain breathing problems chest pain or chest tightness dark yellow or brown urine dizziness fast, irregular heartbeat feeling faint or lightheaded fever or sore throat muscle spasm palpitations redness, blistering, peeling or loosening of the skin, including inside the mouth seizures tremors unusual bleeding or bruising unusually weak or tired yellowing of the eyes or skin Side effects that usually do not require medical attention (Report these to your doctor or health career placement specialist if they continue or are bothersome.): constipation diarrhea dry mouth headache nausea What may interact with this medicine? Do not take this medicine with any of the following medications: atazanavir nelfinavir This medicine may also interact with the following medications: ampicillin delavirdine digoxin diuretics iron salts medicines for fungal infections like ketoconazole, itraconazole and voriconazole warfarin What if I miss a dose? If you miss a dose, take it as soon as you can. If it is almost time for your next dose, take only that dose. Do not take double or extra doses. Where should I keep my medicine? Keep out of the reach of children. Store at room temperature between 15 and 30 degrees C (59 and 86 degrees F). Protect from light and moisture. Throw away any unused medicine after the expiration date. What should I tell my health care provider before I take this medicine? They need to know if you have any of these conditions: liver disease low levels of magnesium in the blood an unusual or allergic reaction to omeprazole, lansoprazole, pantoprazole, rabeprazole, other medicines, foods, dyes, or preservatives or trying to get breast-feeding What should I watch for while using this medicine? It can take several days before your stomach pain gets better. Check with your doctor or health career placement specialist if your condition does not start to get better, or if it gets worse. You may need blood work done while you are taking this medicine. You have been given the following additional information: Gastroenteritis, Viral (6Y-Adult) Ondansetron Oral disintegrating tablet Dicyclomine Hydrochloride Oral tablet Pantoprazole Sodium Gastro-resistant tablet (Electronically signed by Henry Groves Dr. 04/28/2016 22:29)
--- NOTE | 2016-04-28 23:08 | ED MAR SUMMARY ---
..... Medication Administration Record [facility] [address] [place] [address] Patient: MEHDI BEJARANO Visit ID: [id number] 25y, F Weight: 61.0 kg Height/Length: 66 in BMI: 21.7 ALLERGIES: Cipro Start 11:05 04/28/2016 Lillian Valadez R.N., Stop 12:04/28/2016 Lillian Valadez R.N. Medication Administered: IV NS (SALINE), Dose: IV Fluids over 1 hour(s), Rate: 1000 mL/hr, Dispensed: 1000 mL bag, Site: #1 right AC. Medication Ordered: IV NS : initial bolus none -, then 1000 mL/hr for X1 (NOW). Given 11:07 04/28/2016 Lillian Valadze R.N. Medication Administered: ZOFRAN [IVP] (ONDANSETRON HCL), Dose: 4 mg IVP over 1 minute(s), Site: #1 right AC. Medication Ordered: Zofran IV 4 mg (NOW). Given 11:04/28/2016 Lillian Valadez R.N. Medication Administered: REGLAN [IVP] (METOCLOPRAMIDE HCL), Dose: 10 mg IVP over 2 minute(s), Site: #1 right AC. Medication Ordered: Reglan IV 10 mg (NOW). Given 11:30 04/28/2016 Lillian Valadez R.N. Medication Administered: DEMEROL [IVP] (MEPERIDINE HCL), Dose: 50 mg IVP over 1 minute(s), Site: #1 right AC. Medication Ordered: Demerol IV 50 mg (HIGH ALERT MEDICATION, NOW). Start 12:04/28/2016 Lillian Valadez R.N., Stop 13:25 04/28/2016 Lillian Valadez R.N. Medication Administered: 1000cc NS( bag #2) IV at site #1 *, Dose: 1000cc/hr * IV Fluids. Medication Ordered: - (may have IV bag #2 at 1000cc hr. then convert to saline lock). Given 14:22 04/28/2016 Lillian Valadez R.N. Medication Administered: ZOFRAN [IVP] (ONDANSETRON HCL), Dose: 4 mg IVP over 1 minute(s), Site: #1 right AC. Medication Ordered: Zofran IV 4 mg (NOW). Given 15:00 04/28/2016 Lillian Valadez R.N. Medication Administered: PROMETHAZINE [IVP], Dose: 25 mg IVP over 1 minute(s), Site: #1 right AC. Medication Ordered: Promethazine IV 25 mg (HIGH ALERT MEDICATION, NOW). Start 16:20 04/28/2016 Lillian Valadez R.N., Stop 18:50 04/28/2016 Lillian Valadez R.N. Medication Administered: 1000cc NS IV bag #3 *, Dose: 250/hr * IV Fluids. Medication Ordered: - (may have IV bag #3 at 250/hr). Start 16:25 04/28/2016 Lillian Valadez R.N., Stop 17:53 04/28/2016 Le Rea R.N. Medication Administered: FAMOTIDINE [IVPB], Dose: 20 mg IVPB over 20 minute(s), Rate: 150 mL/hr, Dispensed: 50 mL bag, Site: #1 right AC. Medication Ordered: Famotidine IV 20 mg/50mL (NOW). Given 16:45 04/28/2016 Lillian Valadez R.N. Medication Administered: ATIVAN [IVP] (LORAZEPAM), Dose: 0.5 mg IVP over 1 minute(s), Site: #1 right AC. Medication Ordered: Ativan IV 0.5 mg (HIGH ALERT MEDICATION, NOW).
--- NOTE | 2016-04-28 23:08 | ED MAR SUMMARY ---
..... Medication Administration Record [facility] [address] [place] [address] Patient: MEHDI BEJARANO Visit ID: [id number] 25y, F Weight: 61.0 kg Height/Length: 66 in BMI: 21.7 ALLERGIES: Cipro Start 11:05 04/28/2016 Lillian Valadez R.N., Stop 12:04/28/2016 Lillian Valadez R.N. Medication Administered: IV NS (SALINE), Dose: IV Fluids over 1 hour(s), Rate: 1000 mL/hr, Dispensed: 1000 mL bag, Site: #1 right AC. Medication Ordered: IV NS : initial bolus none -, then 1000 mL/hr for X1 (NOW). Given 11:07 04/28/2016 Lillian Valadez R.N. Medication Administered: ZOFRAN [IVP] (ONDANSETRON HCL), Dose: 4 mg IVP over 1 minute(s), Site: #1 right AC. Medication Ordered: Zofran IV 4 mg (NOW). Given 11:04/28/2016 Lillian Valadez R.N. Medication Administered: REGLAN [IVP] (METOCLOPRAMIDE HCL), Dose: 10 mg IVP over 2 minute(s), Site: #1 right AC. Medication Ordered: Reglan IV 10 mg (NOW). Given 11:30 04/28/2016 Lillian Valadez R.N. Medication Administered: DEMEROL [IVP] (MEPERIDINE HCL), Dose: 50 mg IVP over 1 minute(s), Site: #1 right AC. Medication Ordered: Demerol IV 50 mg (HIGH ALERT MEDICATION, NOW). Start 12:04/28/2016 Lillian Valadez R.N., Stop 13:25 04/28/2016 Lillian Valadez R.N. Medication Administered: 1000cc NS( bag #2) IV at site #1 *, Dose: 1000cc/hr * IV Fluids. Medication Ordered: - (may have IV bag #2 at 1000cc hr. then convert to saline lock). Given 14:22 04/28/2016 Lillian Valadez R.N. Medication Administered: ZOFRAN [IVP] (ONDANSETRON HCL), Dose: 4 mg IVP over 1 minute(s), Site: #1 right AC. Medication Ordered: Zofran IV 4 mg (NOW). Given 15:00 04/28/2016 Lillian Valadez R.N. Medication Administered: PROMETHAZINE [IVP], Dose: 25 mg IVP over 1 minute(s), Site: #1 right AC. Medication Ordered: Promethazine IV 25 mg (HIGH ALERT MEDICATION, NOW). Start 16:20 04/28/2016 Lillian Valadez R.N., Stop 18:50 04/28/2016 Lillian Valadez R.N. Medication Administered: 1000cc NS IV bag #3 *, Dose: 250/hr * IV Fluids. Medication Ordered: - (may have IV bag #3 at 250/hr). Start 16:25 04/28/2016 Lillian Valadez R.N., Stop 17:53 04/28/2016 Le Rea R.N. Medication Administered: FAMOTIDINE [IVPB], Dose: 20 mg IVPB over 20 minute(s), Rate: 150 mL/hr, Dispensed: 50 mL bag, Site: #1 right AC. Medication Ordered: Famotidine IV 20 mg/50mL (NOW). Given 16:45 04/28/2016 Lillian Valadez R.N. Medication Administered: ATIVAN [IVP] (LORAZEPAM), Dose: 0.5 mg IVP over 1 minute(s), Site: #1 right AC. Medication Ordered: Ativan IV 0.5 mg (HIGH ALERT MEDICATION, NOW).
--- NOTE | 2016-04-28 23:08 | ED MED RECONCILIATION SUMMARY ---
Patient: MEHDI BEJARANO Medication Reconciliation Report [facility] VisitID: [id number] [place] [address] 25y, F Registration Date/Time: 04/28/2016 Weight: 61 kg Height/Length: 66 in. BMI: 21.7 ALLERGIES: Cipro The patient's Home Medications are listed below: THE FOLLOWING MEDICATIONS NEED TO BE RECONCILED: CeleXA Oral ClonazePAM Oral Gabapentin Oral Prazosin HCl Oral Vistaril Oral The source(s) of the original Home Medication information: Not obtained. The following Medications were given to the patient in the Emergency Department: IV NS IV Fluids bolus 0, then 1000 mL/hr, administered: 04/28/2016 11:05:00 AM Zofran [IVP] IVP 4 mg, administered: 04/28/2016 11:07:00 AM Reglan [IVP] IVP 10 mg, administered: 04/28/2016 11:20:00 AM Demerol [IVP] IVP 50 mg, administered: 04/28/2016 11:30:00 AM 1000cc NS( bag #2) IV at site #1 IV Fluids bolus 0, then 1000cc/hr, administered: 04/28/2016 12:25:00 PM Zofran [IVP] IVP 4 mg, administered: 04/28/2016 2:22:00 PM PROMETHAZINE [IVP] IVP 25 mg, administered: 04/28/2016 3:00:00 PM Famotidine [IVPB] IVPB bolus 0, then 20 mg 150 mL/hr, administered: 04/28/2016 4:25:00 PM Ativan [IVP] IVP 0.5 mg, administered: 04/28/2016 4:45:00 PM 1000cc NS IV bag #3 IV Fluids bolus 0, then 250/hr, administered: 04/28/2016 4:20:00 PM The following Medications were prescribed to the patient: Zofran (orally disintegrating tablets) 4 mg: take 1 orally every 6 hours as needed for nausea and vomiting. Dispense ten (10). No refill. Substitution is permissible. -- Henry Groves Dr. Dicyclomine 20 mg capsules: take 1 orally every 6 hours as needed for abdominal cramps or abdominal discomfort. Dispense thirty (30). No refill -- Henry Groves Dr. Protonix 40 mg tablets: take 1 tablet orally every day. Dispense twenty-eight (28). No refill. Substitution is permissible. -- Henry Groves Dr.
== END 2016-04-28 19:00 | disposition home or self-care (01) ==
LOC: ED SRH 10:53
DX: A08.4 Viral intestinal infection, unspecified (principal); F17.210 Nicotine dependence, cigarettes, uncomplicated; Z79.899 Other long term (current) drug therapy; Z88.1 Allergy status to other antibiotic agents
CPT/HCPCS: 90004; 90100; 90469; 91643; 92235; 92530; 93070; 94001; 94060; 95059